=== PATIENT | male | born 1980 | race Caucasian/White ===

== ENCOUNTER 2017-05-30 13:01 | Outpatient (CLI) | payer BC ==
[~2017-05-30] VITALS: Ht 182.9 cm; Wt 83.9 kg
[2017-05-30 13:23] VITALS: BP 112/70
[2017-05-30] MEDS ORDERED: MULTIVITAMINS1 EAC2 ORAL (13:26)
[2017-05-30] MEDS ORDERED: ENZYME (13:26)
--- NOTE | 2017-05-30 13:46 | GI Initial Consult Note ---
History of Present Illness General Date patient seen: May 30, 2017 Time patient seen: 13:43 Referring physician: SANIA Reason for Consultation: DIARRHEA Present Illness HPI 36 year old male patient referred by Dr. Hilton presents today with c/o of diarrhea multiple times per day x 1 month. Patient denies any recent travels. States he has lost approximately 6-7 lbs in the past month. No history of endoscopic procedures. Home Meds Reported Medications [OTC enzyme] No Conflict Check 05/30/17 Multivitamins* (MULTIVITAMINS*) 1 Each Tablet, 1 TAB ORAL DAILY, TAB 0 Refills 05/30/17 Med list reviewed/reconciled: Yes Allergies: Coded Allergies: No Known Allergies (Unverified , 05/30/17) Patient History History Provided By: Patient PMH Narrative None Past Surgical History: none Pertinent Family History: none Social History: Reports: alcohol use - 10x montly Review of Systems All Other Systems: negative except mentioned in HPI Physical Exam Vital Signs Date Time Temp Pulse Resp B/P Pulse Ox O2 Delivery O2 Flow Rate FiO2 05/30/17 13:23 98.1 46 16 112/70 100 Sp02 EP Interpretation: reviewed General Appearance: well appearing, no apparent distress, alert Head: normocephalic EENT: PERRL/EOMI, normal ENT inspection Neck: full range of motion, supple Respiratory: chest non-tender, normal breath sounds Cardiovascular: normal peripheral pulses, normal rate Gastrointestinal: normal inspection, non tender, soft, normal bowel sounds Rectal: deferred Genitourinary: normal inspection, no CVA tenderness Musculoskeletal: normal inspection, back normal Neurologic: normal inspection, alert, oriented x3, responsive Psychiatric: normal inspection, judgement/insight normal, memory normal Skin: normal inspection, normal color, no rash, warm/dry Lymphatic: normal inspection, no adenopathy GI: Plan Problems: (1) Diarrhea Plan HIV test >> negative on recent test per patient ordered for stool studies, celiac panel RTC after study results Seen with Dr. Calvillo. Thank you for referring this patient. Kelli Savage N.P. May 30, 2017 13:46
== END 2017-05-30 13:45 | disposition home or self-care (01) ==
LOC: PAN 13:01
DX: R19.7 Diarrhea, unspecified (principal)
CPT/HCPCS: 99201

== ENCOUNTER 2019-05-07 10:18 | Day surgery (SDC) | payer BC ==
--- NOTE | 2019-04-23 06:57 | Anethesia Preoperative Eval ---
Anesthesia Pre-op PMH/ROS General Date of Evaluation: Apr 23, 2019 Time of Evaluation: 06:56 Anesthesiologist: beau ASA Score: ASA 3 Mallampati Score Class I : Soft palate, uvula, fauces, pillars visible Class II: Soft palate, uvula, fauces visible Class III: Soft palate, base of uvula visible Class IV: Only hard plate visible Surgeon: kate Diagnosis: abdominal pain Surgical Procedure: colonoscopy Family History: no anesthesia problems Allergies: Coded Allergies: No Known Allergies (Unverified , 05/30/17) Past Medical History Cardiovascular: Reports: HTN Niya Hardy MD Apr 23, 2019 06:57
[2019-05-07] VITALS (7 sets, daily range): BP systolic 92–118; BP diastolic 47–73
[~2019-05-07] VITALS: Ht 182.9 cm; Wt 83.9 kg
[~2019-05-07 10:18] MED LIST: Atropine Inj 1mg/10ml Syr IV PRN; DiphenhydrAMINE 50mg/ml Inj IVP PRN; ENZYME; MULTIVITAMINS1 EAC2 ORAL; Midazolam 2mg/2ml Inj IVP PRN; fentaNYL 100 mcg/2 mL IV PRN
[2019-05-07] MEDS ORDERED: fentaNYL 100 mcg/2 mL IV ONE (10:19)
[2019-05-07] MEDS ORDERED: Midazolam 2mg/2ml Inj ONE (10:19)
--- NOTE | 2019-05-07 11:56 | Anethesia Preoperative Eval ---
Anesthesia Pre-op PMH/ROS General Date of Evaluation: May 07, 2019 Time of Evaluation: 11:52 Anesthesiologist: Geeta ASA Score: ASA 2 Mallampati Score Class I : Soft palate, uvula, fauces, pillars visible Class II: Soft palate, uvula, fauces visible Class III: Soft palate, base of uvula visible Class IV: Only hard plate visible Mallampati Classification: Class II Surgeon: Karli Diagnosis: Abdominal pain Surgical Procedure: Colonoscopy Anesthesia History: none Family History: no anesthesia problems Allergies: Coded Allergies: No Known Allergies (Unverified , 05/30/17) Medications: see eMAR Patient NPO?: Yes Past Medical History Cardiovascular: Denies: HTN, CAD, MS, valve dz, arrhythmia, other Pulmonary: Denies: asthma, COPD, JIMMY, other Gastrointestinal/Genitourinary: Reports: GERD; Denies: CRI, ESRD, other Neurologic/Psychiatric: Denies: dementia, CVA, depression/anxiety, TIA, other Endocrine: Denies: DM, hypothyroidism, steroids, other HEENT: Denies: cataract (L), cataract (R), glaucoma, PAMUNKEY (L), PAMUNKEY (R), other Hematology/Immune: Denies: anemia, DVT, bleeding disorder, other Musculoskeletal/Integumentary: Denies: OA, RA, DJD, DDD, edema, other PMH Narrative: as above PSxH Narrative: see H&P Anesthesia Pre-op Phys. Exam Physician Exam Last Vital Signs Date Time Temp Pulse Resp B/P (MAP) Pulse Ox O2 Delivery O2 Flow Rate FiO2 05/07/19 10:55 Room Air 05/07/19 10:49 98.1 50 18 118/69 96 Constitutional: NAD Neurologic: CN 2-12 intact Cardiovascular: RRR, no M/R/G Respiratory: CTA Gastrointestinal: S/NT/ND Airway Exam Mallampati Score: Class II MO: full Neck: flexible ROM: full Teeth: intact Dentures: no upper, no lower Anesthesia Pre-op A/P Risk Assessment & Plan Assessment: ASA 2 Plan: Ham Gómez MD May 07, 2019 11:56
[2019-05-07] MEDS ORDERED: Propofol 200mg/20ml IV ONE (12:00)
--- NOTE | 2019-05-07 12:04 | Pre-Procedure Note/Attestation ---
Pre-Procedure Note/Attestation Complete Prior to Procedure Planned Procedure: not applicable Procedure Narrative: colonoscopy Indications for Procedure Pre-Operative Diagnosis: diarrhea Attestation I attest that I discussed the nature of the procedure; its benefits; risks and complications; and alternatives (and the risks and benefits of such alternatives ), prior to the procedure, with the patient (or the patient's legal hospital insurance representative). I attest that, if there was a reasonable possibility of needing a blood transfusion, the patient (or the patient's legal hospital insurance representative) was given the [facility] standardized written summary, pursuant to the Joao Herbert Blood Safety Act ([place] Health and Safety Code # 1645, as amended). I attest that I re-evaluated the patient just prior to the surgery and that there has been no change in the patient's H&P, except as documented below: Selvin Calvillo MD May 07, 2019 12:04
--- NOTE | 2019-05-07 12:05 | Short Stay Surgery H&P ---
History of Present Illness History of Present Illness Chief Complaint see office note HPI Ravinder Garza is a 38 year old male who was admitted on for Abdominal Pain Patient History Allergies: Coded Allergies: No Known Allergies (Unverified , 05/30/17) Medication History Scheduled Multivitamins* (Multivitamins*), 1 TAB ORAL DAILY, (Reported) Discontinued Medications [OTC enzyme], (Reported) Discontinued Reason: Pt stopped taking med Physical Exam Vital Signs Last Vital Signs Date Time Temp Pulse Resp B/P (MAP) Pulse Ox O2 Delivery O2 Flow Rate FiO2 05/07/19 10:55 Room Air 05/07/19 10:49 98.1 50 18 118/69 96 Plan Attestation Are the patient's medical conditions optimized for surgery? Selvin Calvillo MD May 07, 2019 12:05
--- NOTE | 2019-05-07 12:44 | Immediate Post-Op Evaluation ---
Immediate Post-Op Evalulation Immediate Post-Op Evalulation Procedure: Colonoscopy Date of Evaluation: May 07, 2019 Time of Evaluation: 12:43 IV Fluids: 800 Blood Products: none Estimated Blood Loss: none Urinary Output: none Blood Pressure Systolic: 106 Blood Pressure Diastolic: 68 Pulse Rate: 56 Respiratory Rate: 18 O2 Sat by Pulse Oximetry: 98 Temperature (Fahrenheit): 97.8 Pain Score (1-10): 1 Nausea: No Vomiting: No Complications none Patient Status: awake, patent, none Hydration Status: adequate Ham Connor MD May 07, 2019 12:44
--- NOTE | 2019-05-07 20:00 | Procedure Note ---
DATE OF PROCEDURE: 05/07/2019 SURGEON: Selvin Calvillo M.D. PROCEDURE: Colonoscopy with biopsy. ANESTHESIA: Per Dr. Connor. INSTRUMENT: Olympus adult flexible colonoscope. INDICATION: Diarrhea. REASON FOR PROCEDURE: The procedure, risks, benefits, and possible consequences, including hemorrhage, aspiration, perforation and infection, and alternative treatments, were explained to the patient/legal guardian by Dr. Selvin Calvillo and the patient/legal guardian understood and accepted these risks. PROCEDURE IN DETAIL: After informed consent was obtained and the patient was adequately sedated, first rectal exam was performed, which was normal. Then, the scope was advanced from the rectum into the cecum then subsequently terminal ileum. The quality of prep was good. The patient had normal colonoscopy examination except for internal hemorrhoids seen on retroflexion. Random biopsies from terminal ileum, right and left colon was obtained for evaluation of diarrhea. SUMMARY OF FINDINGS: 1. Normal colonoscopy examination except for internal hemorrhoids. 2. Status post biopsy of the terminal ileum, right and left colon for evaluation of diarrhea. RECOMMENDATIONS: Follow up pathology and treat accordingly. Selvin Calvillo M.D. DR: AMY JOB#: [id number] CC:
[2019-05-08 08:37] VITALS: BP 116/72
--- NOTE | 2019-05-08 08:37 | 48 Hour Post Anesthesia Eval ---
Post Anesthesia Evaluation Procedure: Colonoscopy Date of Evaluation: May 07, 2019 Time of Evaluation: 13:25 Blood Pressure Systolic: 116 0: 72 Pulse Rate: 68 Respiratory Rate: 18 Temperature (Fahrenheit): 97.6 O2 Sat by Pulse Oximetry: 98 Airway: patent Nausea: No Vomiting: No Pain Intensity: 1 Hydration Status: adequate Cardiopulmonary Status: stable Mental Status/LOC: patient returned to baseline Follow-up Care/Observations: n/a Post-Anesthesia Complications: none Follow-up care needed: ready to discharge Ham Connor MD May 08, 2019 08:37
== END 2019-05-07 13:40 | disposition home or self-care (01) ==
LOC: GAS 10:18
DX: R19.7 Diarrhea, unspecified (principal); K64.9 Unspecified hemorrhoids; K21.9 Gastro-esophageal reflux disease without esophagitis
CPT/HCPCS: 45380; J2250; J2704; J3010; 94003; 94150